=== PATIENT | male | born 1980 | race Caucasian/White ===

== ENCOUNTER 2019-06-29 10:45 | Outpatient (CLI) | payer MEDICAID, SELFPAY ==
--- NOTE | 2019-06-29 10:49 | XR_ITS ---
WS: [id number] Cervical spine, 5 views including flexion and extension lateral views, 06/29/2019 Clinical Data: Chronic neck pain Comparison: Cervical spine, 11/06/2015. Findings: No compression fractures are seen. The disc heights are normal. There is no prevertebral so ft tissue swelling. The odontoid is unremarkable. The soft tissues of the neck and the lung apices ar e normal. No limitation of motion or subluxation is noted on flexion or extension. XR/XR cervical spine 4-5V [id number] Impression: Negative cervical spine with no limitation of motion or subluxation on flexion or extension.
== END 2019-06-29 10:46 | disposition home or self-care (01) ==
LOC: WPI 10:49
PROVIDERS: Family Provider Nurse Practitioner; PCP Nurse Practitioner; Referring Provider Nurse Practitioner; Visit Provider Nurse Practitioner
DX: M54.2 Cervicalgia (principal); G89.29 Other chronic pain
CPT/HCPCS: 72050